=== PATIENT | female | born 1955 | race Caucasian/White ===

== ENCOUNTER 2024-12-13 22:57 | Emergency (ER) | payer MEDICARE ==
[~2024-12-13] VITALS: Ht 167.6 cm; Wt 107.0 kg
--- NOTE | 2024-12-13 23:57 | HMCIMG ---
CHEST 1VW HISTORY: Shortness of breath COMPARISON: None FINDINGS: A frontal projection of the chest was obtained. No acute pulmonary infiltrates is seen. The heart is normal in size. Mild degenerative changes are seen. Prominent interstitial markings are seen. No evidence of aortic calcification is seen. IMPRESSION: 1. No acute pulmonary infiltrate is seen.
[2024-12-14 00:08] LABS: BASOPHILS # (AUTO) 0.04 K/uL (0.00-0.20); BASOPHILS % (AUTO) 0.9 % (0.0-5.0); EOSINOPHILS % (AUTO) 4.3 % (0.0-8.0); HEMATOCRIT 35.3 % (36-48); IMMATURE GRANULOCYTE ABSOLUTE 0.01 K/uL (0-1); LYMPHOCYTES # (AUTO) 1.2 K/uL (1.0-4.8); LYMPHOCYTES % (AUTO) 25.3 % (21.0-51.0); MEAN CORPUSCULAR HEMOGLOBIN 26.2 pg (27.0-33.0); MEAN CORPUSCULAR HGB CONC 31.7 g/dL (32.0-36.0); MEAN CORPUSCULAR VOLUME 82.7 fL (79-99); MONOCYTES # (AUTO) 0.5 K/uL (0.1-1.0); MONOCYTES % (AUTO) 11.3 % (3.0-13.0); NEUTROPHILS # (AUTO) 2.7 K/uL (1.8-7.7); PLATELET COUNT (AUTO) 257 K/uL (130-400); RED BLOOD CELL COUNT(AUTO) 4.27 MIL/uL (4.00-5.50); RED CELL DISTRIBUTION WIDTH 14.6 % (11.0-15.5); WHITE BLOOD COUNT (AUTO) 4.7 K/uL (4.8-10.8)
[2024-12-14 00:20] LABS: CREATININE 1.1 mg/dL (0.5-1.0); MAGNESIUM 1.8 mg/dL (1.80-2.40); POTASSIUM 3.8 mmol/L (3.5-5.1)
[2024-12-14 00:33] LABS: B-TYPE NATRIURETIC PEPTIDE 6 pg/mL (0-100)
--- NOTE | 2024-12-14 01:42 | ERN ---
General Chief Complaint: Lower Extremity Pain/Injury Stated Complaint: C/O SWELLING TO LOWER EXTREMITIES/HIGH B/P Time Seen by MD: 23:05 Time Seen by Midlevel: 23:05 Source: patient History of Present Illness Allergies: Coded Allergies: Iodinated Contrast Media (Unverified Allergy, Unknown, 12/13/24) Sulfa (Sulfonamide Antibiotics) (Unverified Allergy, Unknown, 12/13/24) acetaminophen (Unverified Allergy, Unknown, 12/13/24) hydralazine (Unverified Allergy, Unknown, 12/14/24) hydrocodone (Unverified Allergy, Unknown, 12/13/24) Home Meds Active Scripts Clonidine HCl (Clonidine HCl) 0.1 Mg Tablet, 1 TAB PO HS for 15 Days, #15 TAB 0 Refills Prov:ROLAN CRAWLEY 12/14/24 Past Medical History Past Medical History: Anxiety, Hypertension, Other Medical History Other: HX OF ADHD Past Surgical History: Hysterectomy, Tonsillectomy Surgical History Other: TUMMY TUCK Results Laboratory and Microbiology Lab and Micro Result Laboratory Tests Test 12/13/24 23:58 White Blood Count 4.7 K/uL (4.8-10.8) L Red Blood Count 4.27 MIL/uL (4.00-5.50) Hemoglobin 11.2 g/dL (12.0-16.0) L Hematocrit 35.3 % (36-48) L Mean Corpuscular Volume 82.7 fL (79-99) Mean Corpuscular Hemoglobin 26.2 pg (27.0-33.0) L Mean Corpuscular Hemoglobin Concent 31.7 g/dL (32.0-36.0) L Red Cell Distribution Width 14.6 % (11.0-15.5) Platelet Count 257 K/uL (130-400) Mean Platelet Volume 10.0 fL (7.5-10.5) Immature Granulocyte % (Auto) 0.2 % (0-1) Neutrophils (%) (Auto) 58.0 % (40.0-77.0) Lymphocytes (%) (Auto) 25.3 % (21.0-51.0) Monocytes (%) (Auto) 11.3 % (3.0-13.0) Eosinophils (%) (Auto) 4.3 % (0.0-8.0) Basophils (%) (Auto) 0.9 % (0.0-5.0) Neutrophils # (Auto) 2.7 K/uL (1.8-7.7) Lymphocytes # (Auto) 1.2 K/uL (1.0-4.8) Monocytes # (Auto) 0.5 K/uL (0.1-1.0) Eosinophils # (Auto) 0.20 K/uL (0.00-0.70) Basophils # (Auto) 0.04 K/uL (0.00-0.20) Absolute Immature Granulocyte (auto 0.01 K/uL (0-1) Nucleated Red Blood Cells 0.0 % (0.0-0.19) Sodium Level 142 mmol/L (136-145) Potassium Level 3.8 mmol/L (3.5-5.1) Chloride Level 106 mmol/L (101-111) Carbon Dioxide Level 29 mmol/L (21-32) Blood Urea Nitrogen 13 mg/dL (7-18) Creatinine 1.1 mg/dL (0.5-1.0) H Glomerular Filtration Rate Calc 55 mL/min (>90) Random Glucose 109 mg/dL (70-105) H Total Calcium 9.1 mg/dL (8.5-10.1) Magnesium Level 1.80 mg/dL (1.80-2.40) Troponin I High Sensitivity 9 ng/L (4-50) B-Type Natriuretic Peptide 6 pg/mL (0-100) MDM Patient admitted for leg swelling and elevated blood pressure. The workup was negative and there was no associated pulmonary edema with the leg swelling. Efforts were then turned controlling the patient's blood pressure. She was given hydralazine which caused a reaction almost allergic in nature. And then with time her blood pressure did decrease and she was stable for discharge ED Course Orders Procedure Category Date Status Time Cbc With Differential LAB 12/13/24 Complete 23:31 B-Type Natriuretic LAB 12/13/24 Complete Peptide 23:31 Basic Metabolic Panel LAB 12/13/24 Complete 23:31 Magnesium LAB 12/13/24 Complete 23:31 Troponin I High LAB 12/13/24 Complete Sensitivity 23:31 Chest 1vw RAD 12/13/24 Resulted 23:31 12 Lead Ekg Tracing- EKG 12/13/24 Complete Technical 23:31 Hydralazine 20mg Inj PHA 12/14/24 Complete (Apresoline 20mg In 03:00 Methylprednisolone PHA 12/14/24 Complete Succ 125mg (Solu-Medr 04:25 Diphenhydramine Hcl PHA 12/14/24 Complete (Benadryl Inj) 04:25 Diphenhydramine Hcl PHA 12/14/24 Complete (Benadryl Inj) 04:30 Methylprednisolone PHA 12/14/24 Complete Succ 125mg (Solu-Medr 04:30 Famotidine 20mg Vial PHA 12/14/24 Complete (Pepcid 20mg Vial) 04:57 Current Medications Medications (Trade) Dose Ordered Sig/Brandi Route PRN Reason Start Time Stop Time Status Last Admin Dose Admin Diphenhydramine HCl (BENAdryl INJ) 50 mg ONCE ONCE IV 12/14/24 04:30 12/14/24 04:32 DC 12/14/24 04:32 Diphenhydramine HCl (BENAdryl INJ) 50 mg STK-MED ONCE .ROUTE 12/14/24 04:25 12/14/24 04:28 DC Famotidine (Pepcid 20mg Vial) 20 mg STK-MED ONCE IV 12/14/24 04:57 12/14/24 04:57 DC Hydralazine HCl (APRESOLine 20MG INJ) 10 mg ONCE ONCE IV 12/14/24 03:00 12/14/24 03:01 DC 12/14/24 03:01 Methylprednisolone Sodium Succinate (Solu-medROL 125MG) 125 mg ONCE ONCE IVP 12/14/24 04:30 12/14/24 04:32 DC 12/14/24 04:32 Methylprednisolone Sodium Succinate (Solu-medROL 125MG) 125 mg STK-MED ONCE .ROUTE 12/14/24 04:25 12/14/24 04:28 DC Vital Signs Date Time Temp Pulse Resp B/P (MAP) Pulse Ox O2 Delivery O2 Flow Rate FiO2 12/14/24 05:57 91 20 175/57 97 Room Air* 0 21 12/14/24 04:00 98.8 91 18 165/75 96 Room Air* 0 12/14/24 03:46 79 170/69 96 Room Air* 0 21 12/14/24 03:07 75 18 179/82 96 Room Air* 0 12/14/24 03:01 80 169/80 Room Air* 0 12/14/24 02:30 79 194/79 96 Room Air* 0 12/14/24 02:13 98.2 76 14 156/69 97 Room Air* 0 12/14/24 00:11 81 14 168/64 98 Room Air* 0 12/13/24 23:42 98.4 81 20 174/69 96 Room Air* 0 12/13/24 23:03 98.2 87 20 187/82 96 Room Air DX & DISP Disposition: Discharge Departure Impression: Primary Impression: Elevated blood pressure reading Condition: Stable Scripts Clonidine HCl (Clonidine HCl) 0.1 Mg Tablet 1 TAB PO HS for 15 Days, #15 TAB 0 Refills Prov: ROLAN CRAWLEY 12/14/24 Additional Instructions: Your blood work today is unremarkable. Your kidney function is normal. Your chest x-ray does not show any evidence of pneumonia or fluid in your lungs. Your blood pressure is slightly elevated in the emergency department. You will need to see your primary care doctor for possible medication adjustments. This needs to be done outpatient. I have given you a prescription for clonidine 0.1 mg. Please take this medication if your systolic blood pressure is over 170. This medication may take up to an hour to work. If you develop any chest pain or if you are unable to control your blood pressure please report to the emergency department for further evaluation. Referrals: SELF,REFERRAL (PCP) I have reviewed the case, and I agree with, Diagnosis and Plan I performed the substantive portion of the visit. I have reviewed and personally made and approve the management plan that is documented in the note by myself or the ZECHARIAH. I acknowledge for responsibility for the patient's management plan. ROLAN CRAWLEY Dec 14, 2024 01:42 MANUEL FRANCIS MD Dec 14, 2024 06:27
[2024-12-14] MEDS ORDERED: CLON0.1T PO (02:57)
[2024-12-14] MEDS: hydrALAZine 20MG/ML VIAL IV ONE (03:01)
[2024-12-14 04:00] VITALS: TEMP 98.8
--- NOTE | 2024-12-14 04:30 | NUR ---
PATIENT DEVELOPED REDNESS TO FACE, REPORTED ITCHINESS, "SWELLING SENSATITION TO FACE". ED MD MADE AWARE
[2024-12-14] MEDS: Solu-medROL 125MG VIAL ONE (04:31)
[2024-12-14] MEDS: DiphenhydrAMINE HCL 50 MG/ML VIAL ONE (04:31)
[2024-12-14] MEDS: Solu-medROL 125MG VIAL IVP ONE (04:32)
[2024-12-14] MEDS: DiphenhydrAMINE HCL 50 MG/ML VIAL IV ONE (04:32)
--- NOTE | 2024-12-14 04:40 | NUR ---
DR. FRANCIS AT BEDSIDE AT THIS TIME TO ASSESS PT
[2024-12-14] MEDS ORDERED: FAMOTIDINE 20MG VIAL IV ONE (04:57)
[2024-12-14 05:57] VITALS: BP 175/57; PULSE 91; RESP 20; O2SAT 97
--- NOTE | 2024-12-14 07:36 | EKG ---
[facility] Test Date: 2024-12-13 Test Time: 23:49:51 Pat Name: KENNY NEVAREZ Department: ED Room: Gender: F [employer] Management Associate: [id number] : 1955 Requested By: ROLAN CRAWLEY Order Number: [id number] Reading MD: Juan Whitaker Measurements Intervals [place] Rate: 79 P: 55 TX: 155 QRS: 60 QRSD: 94 T: 39 QT: 387 QTc: 444 Interpretive Statements Sinus rhythm No previous ECG available for comparison Electronically Signed On 12-15-2024 14:47:52 CDT by Juan Whitakre Please click the below link to view image of tracing.
== END 2024-12-14 06:50 | disposition home or self-care (01) ==
LOC: EDH 22:57
DX: I10 Essential (primary) hypertension (principal); F41.9 Anxiety disorder, unspecified; Z88.2 Allergy status to sulfonamides; Z88.5 Allergy status to narcotic agent; Z90.710 Acquired absence of both cervix and uterus; Z91.041 Radiographic dye allergy status
CPT/HCPCS: 99285; 83735; 84484; 80048; 83880; 85025; 36415; 71045; 93005; 96374; 96375; J1200; J2919; J0360; J3490

== ENCOUNTER 2025-06-14 15:21 | Emergency (ER) | payer MEDICARE ==
[~2025-06-14] VITALS: Ht 167.6 cm; Wt 98.0 kg
[~2025-06-14 15:21] MED LIST: CLON0.1T PO
--- NOTE | 2025-06-14 15:28 | ERN ---
General Chief Complaint: Wrist Pain/Injury Stated Complaint: FELL FROM SATNING POSITION ON A STOOL THAT BROKE Time Seen by MD: 15:24 History of Present Illness Initial Comments 70-year-old female who presents for right wrist and elbow pain. Patient was on a step stool when she fell back. She foot her right hand out to catch herself. She had a FOOSH type injury. She complains of pain to the right wrist and right elbow. No shoulder pain. No hand pain. Neurovascularly intact. No other injuries. She did not hit her head or neck. Incident occurred about 6 hours ago. She does have some mild swelling to the wrist. Allergies: Coded Allergies: Iodinated Contrast Media (Unverified Allergy, Unknown, 12/13/24) Sulfa (Sulfonamide Antibiotics) (Unverified Allergy, Unknown, 12/13/24) acetaminophen (Unverified Allergy, Unknown, 12/13/24) hydralazine (Unverified Allergy, Unknown, 12/14/24) hydrocodone (Unverified Allergy, Unknown, HOT FLASHES, 06/14/25) Home Meds Active Scripts Meloxicam (Meloxicam) 15 Mg Tablet, 15 MG PO DAILY PRN for PAIN for 10 Days, #10 TAB Prov:JOSE WEAVER DO 06/14/25 Clonidine HCl (Clonidine HCl) 0.1 Mg Tablet, 1 TAB PO HS for 15 Days, #15 TAB 0 Refills Prov:ROLAN CRAWLEY 12/14/24 Past Medical History Past Medical History: Anxiety, Hypertension, Other Medical History Other: HX OF ADHD Past Surgical History: Hysterectomy, Tonsillectomy Surgical History Other: ARCELIAMY STEFANIA ROS Dictation CONSTITUTIONAL: No chills, no fever, no weakness, no diaphoresis, no malaise. HEAD/FACE: No signs of trauma. EENT: No eye pain, no blurred vision, no tearing, no double vision, no ear pain, no ear discharge, no nose pain, no nasal congestion, no throat pain, no throat swelling, no mouth pain. RESPIRATORY: No cough, no orthopnea, no SOB, no stridor, no wheezing. CARDIOVASCULAR: No chest pain, no edema, no palpitations, no syncope. GASTROINTESTINAL/ABDOMINAL: No abdominal pain, no constipation, no diarrhea, no nausea, no vomiting. GENITOURINARY: No abnormal discharge, no dysuria, no frequent urination, no hematuria. No complaints of pain in the genitals. MUSCULOSKELETAL: Right wrist and elbow pain INTEGUMENTARY: No change in color, no change in hair/nails, no dryness, no lesion, no lumps, no rash. NEUROLOGICAL/PSYCH: No anxiety, not depressed, no emotional problem, no headache, no numbness, no pre-existing deficit, no history of seizures, no tremors, no weakness. HEMATOLOGIC/LYMPHATIC: Not anemic, no history of blood clots, no apparent bleeding, no bruising, glands not swollen. All Systems Negative, Except as Noted. Physical Exam Physical Exam Dictation VITAL SIGNS: Reviewed. GENERAL APPEARANCE: Alert, oriented x3, no acute distress EYES: PERRL, pink conjunctivas, eyelid no trauma, anterior chamber clear. EARS: Pinnas intact and no signs of trauma or erythema. Ear canals clear and no discharge. TMs no erythema. NOSE: No discharge, no bleeding. OROPHARYNX: Mouth normal, teeth no caries, tongue pink. Pharynx clear, no erythema. Tonsils no exudates, no abscesses noted. Mucous membrane moist. NECK: Supple, non-tender, no thyromegaly, no masses, no JVD, no bruits. BREAST: Deferred. CHEST: No tenderness, no crepitus, no paradoxical movement, no retractions. LUNGS: Clear, well-ventilated, symmetric, no rales, no wheezing, no rhonchi, no stridor, good breath sounds bilaterally. HEART: Regular rate, regular rhythm, no murmur, no gallops. VASCULAR: No peripheral edema. ABDOMEN: Soft, positive bowel sounds, nondistended, no guarding, nontender, no rebound, no masses no hepatomegaly, no splenomegaly, no Amssey's sign, no hernias. RECTAL: Deferred. GENITAL: Deferred. NEUROLOGICAL: Normal speech, gross motor function intact, gross sensory function intact. MUSCULOSKELETAL: Neck nontender, full range of motion, back nontender, full range of motion. EXTREMITIES: Nontender, full range of motion. SKIN: Color pink, dry, no turgor, no rash, no lacerations, no abrasions, no contusions. LYMPHATICS: Deferred. MDM CC: fall, R wrist pain Historian: Patient Comorbidities: Hypertension Limitations by social determinants of health: None Differential diagnosis: Fracture, soft tissue injuries sprain/strain, other Neurovascularly intact closed injury Vital signs are stable X-rays of the right elbow, forearm, and wrist independently interpreted by me show no acute fractures. Patient placed in a sling, given pain control IM Toradol and p.o. [place]. She reports feeling improvement No major injuries, likely soft tissue we will DC. ED Course Orders Procedure Category Date Status Time Wrist Comp 3+Vws Rt RAD 06/14/25 Resulted 15:24 Forearm 2vws Rt RAD 06/14/25 Resulted 15:24 Elbow Comp 3+Vws Rt RAD 06/14/25 Resulted 15:24 Ketorolac PHA 06/14/25 Complete Tromethamine 15mg/Ml 15:30 Acetaminophen With PHA 06/14/25 Complete Codeine (Tylenol-Code 15:30 *Nursing CPOE 06/14/25 Transmitted Communication: 15:24 Current Medications Medications (Trade) Dose Ordered Sig/Brandi Route PRN Reason Start Time Stop Time Status Last Admin Dose Admin Acetaminophen/ Codeine Phosphate (TYLenol-coDEINE TAB) 1 tab ONCE ONCE PO 06/14/25 15:30 06/14/25 15:34 DC 06/14/25 16:08 Ketorolac Tromethamine (toRADol) 15 mg ONCE ONCE IM 06/14/25 15:30 06/14/25 15:31 DC 06/14/25 16:08 Vital Signs Date Time Temp Pulse Resp B/P (MAP) Pulse Ox O2 Delivery O2 Flow Rate FiO2 06/14/25 15:50 98.2 79 16 153/81 99 Room Air* 0 21 06/14/25 15:22 98.2 79 16 153/81 99 Room Air DX & DISP Disposition: Discharge Departure Impression: Primary Impression: Right wrist sprain Condition: Stable Scripts Meloxicam (Meloxicam) 15 Mg Tablet 15 MG PO DAILY PRN for PAIN for 10 Days, #10 TAB Prov: JOSE WEAVER DO 06/14/25 Additional Instructions: The x-rays do not show any fractures. Your symptoms are consistent with a sprain/strain. I recommend that you wear a splint. Consider getting a wrist splint at the pharmacy. You may want to wear this for the next week or two. Apply ice frequently to reduce swelling. I have prescribed meloxicam, which is a nonsteroidal anti-inflammatory pain medication. You can take this once a day for pain. You can also take 1000 mg of Tylenol up to 4 times a day as needed for pain. If you continue with symptoms by next week and, I recommend he follow up with the primary doctor for re-evaluation. You can Referrals: SELF,REFERRAL (PCP) JOSE WEAVER DO Jun 14, 2025 15:28
--- NOTE | 2025-06-14 16:03 | HMCIMG ---
WRIST COMP 3+VWS RT REASON: fall TECHNIQUE: 3 views were obtained. FINDINGS: There is no evidence of fracture or dislocation. There is no joint effusion. The soft tissues appear unremarkable. There is no evidence of a radiopaque foreign body. There is severe osteoarthropathy of the radiocarpal and the distal carpal rows with sclerosis IMPRESSION: No acute fracture or dislocation Severe osteoarthropathy
--- NOTE | 2025-06-14 16:07 | HMCIMG ---
FOREARM 2VWS RT REASON: fall TECHNIQUE: 2 views were obtained. FINDINGS: There is no evidence of fracture or dislocation. There is no joint effusion. The soft tissues appear unremarkable. There is no evidence of a radiopaque foreign body. There is mild juxta articular osteopenia. There is osteoarthropathy of the right first metacarpal carpal joints. IMPRESSION: No acute fracture or dislocation Juxta articular osteopenia
--- NOTE | 2025-06-14 16:08 | HMCIMG ---
ELBOW COMP 3+VWS RT REASON: fall TECHNIQUE: 3 views were obtained. FINDINGS: There is no evidence of fracture or dislocation. There is no joint effusion. The soft tissues appear unremarkable. There is no evidence of a radiopaque foreign body. IMPRESSION: No Acute fracture or dislocation
[2025-06-14] MEDS ORDERED: MELO-108 PO (16:21)
[2025-06-14 16:45] VITALS: BP 147/79; PULSE 76; RESP 16; TEMP 98.2; O2SAT 99
--- NOTE | 2025-06-14 16:58 | NUR ---
SLING APPLIED TO RT ARM, PT TOLERATED WELL
== END 2025-06-14 16:52 | disposition home or self-care (01) ==
LOC: EDH 15:21
DX: S63.501A Unspecified sprain of right wrist, initial encounter (principal); I10 Essential (primary) hypertension; M19.90 Unspecified osteoarthritis, unspecified site; Z88.2 Allergy status to sulfonamides; Z88.5 Allergy status to narcotic agent; Z79.899 Other long term (current) drug therapy; Z90.710 Acquired absence of both cervix and uterus; Z91.041 Radiographic dye allergy status; W08.XXXA Fall from other furniture, initial encounter; Y93.89 Activity, other specified; Y92.89 Other specified places as the place of occurrence of the external cause; Y99.8 Other external cause status
CPT/HCPCS: 99284; 73080; 73090; 73110; 96372; J1885; 29105